=== PATIENT | female | born 1925 | race Caucasian/White ===

== ENCOUNTER 2016-03-11 19:23 | Inpatient (IN) | payer OTHER ==
--- NOTE | 2016-03-11 19:45 | PDOC ---
History of Present Illness - General History Source: Patient Exam Limitations: No Limitations - History of Present Illness Initial Comments: 03/11/16 20:15 The patient is a 89 year old female, from [facility], with a significant past medical history of dementia and hyperglycemia who presents to the ED s/p abnormal labs. The patient has sodium levels of 161. The patient is DNR DNI. The patient denies any pain. This HPI is limited secondary to patients dementia. <Camila Ott - Last Filed: 03/11/16 21:06> - General History Source: Patient <JeremyBerto thakkar - Last Filed: 03/11/16 22:07> - General Chief Complaint: Revisit, Lab Variance Stated Complaint: ABNORMAL LABS Time Seen by Provider: 03/11/16 19:41 Past History <Camila Ott - Last Filed: 03/11/16 21:06> - Past Medical History Dementia: Yes Suicide Attempt (Hx): No - Immunization History Immunization Up to Date: No - Psycho/Social/Smoking Cessation Hx Anxiety: No Suicidal Ideation: No Smoking Status: No Smoking History: Former smoker Have you smoked in the past 12 months: No Number of Cigarettes Smoked Daily: 0 If you are a former smoker, when did you quit?: 50-60years ago Hx Alcohol Use: No Drug/Substance Use Hx: No Substance Use Type: None <Berto Brito - Last Filed: 03/11/16 22:07> - Past Medical History Allergies/Adverse Reactions: Allergies Allergy/AdvReac Type Severity Reaction Status Date / Time No Known Allergies Allergy Verified 03/11/16 19:53 Home Medications: Ambulatory Orders Latanoprost 0.005% Eye Drops [Xalatan 0.005% Eye Drops -] 1 drop OU HS 11/30/12 Sennosides [Senna -] 1 tab PO HS PRN #30 tablet 08/14/15 Lidocaine 5% Patch [Lidoderm -] 1 patch TP DAILY patch 09/26/15 Acetaminophen [Tylenol .Regular Strength -] 650 mg PO Q6H PRN #0 tablet Amlodipine Besylate [Norvasc -] 5 mg PO BID tablet 02/10/16 Docusate Sodium [Colace -] 300 mg PO HS capsule 02/10/16 Enoxaparin [Lovenox -] 30 mg SQ DAILY disp.syrin 02/10/16 Review of Systems - Review of Systems Able to Perform ROS?: Yes Comments:: 03/11/16 20:15 CONSTITUTIONAL: Absent: fever, no chills, no fatigue EYES: Absent: visual changes ENT: Absent: ear pain, no sore throat CARDIOVASCULAR: Absent: chest pain, no palpitations RESPIRATORY: Absent: cough, no SOB GI: Absent: abdominal pain, no nausea, no vomiting, no constipation, no diarrhea HEMATOLOGIC: + abnormal lab findings GENITOURINARY: Absent: dysuria, no frequency, no hematuria MUSKULOSKELETAL: Absent: back pain, no arthralgia, no myalgia SKIN: Absent: rash NEURO: Absent: headache All Other Systems: Reviewed and Negative <Camila Ott - Last Filed: 03/11/16 21:06> *Physical Exam - Vital Signs Last Vital Signs Temp Pulse Resp BP Pulse Ox 97.2 F L 95 H 19 141/56 98 03/11/16 19:47 03/11/16 19:47 03/11/16 19:47 03/11/16 19:47 03/11/16 19:47 - Physical Exam Comments: 03/11/16 20:15 GENERAL: + alert to her name but does not answer appropriately , not complaining of any physical pain. Well-appearing, well-nourished. No apparent distress. HEENT: Normocephalic, atraumatic. PERRL, EOM intact. CARDIOVASCULAR: Normal S1, S2. Regular rate and rhythm. PULMONARY: Clear to auscultation bilaterally. ABDOMEN: Soft, non-distended, non-tender. EXTREMITIES: Normal ROM in all four extremities. No gross deformities. SKIN: Warm, dry. No rash NEUROLOGICAL: + gross motor sensory deficits <Camila Ott - Last Filed: 03/11/16 21:06> Heart Score/ECG Review #1 03/11/16 21:06 Reviewed and interpreted by Dr. Brito Impression: Undetermined rhythm Low voltage QRS Septal infarct, age undetermined Lateral infarct, age undetermined ST & T wave abnormality, consider anterior ischemia Vent rate 96 bpm QRS duration 56 ms QT/QTc 344/434 ms <Camila Ott - Last Filed: 03/11/16 21:06> ED Treatment Course - LABORATORY CBC & Chemistry Diagram: 03/11/16 21:00 03/11/16 21:00 <Berto Brito - Last Filed: 03/11/16 22:07> Medical Decision Making - Medical Decision Making 03/11/16 20:44 Dr. Brito: The scribe's documentation has been prepared under my direction and personally reviewed by me in its entirery. I confirm that the note above accurately reflects all work, treatment, procedures, and medical decision making performed by me. pt will be admitted to [facility] for Hypernatremia. Pt currently hemodynamically stable, in no acute distress. <Berto Brito - Last Filed: 03/11/16 22:07> *DC/Admit/Observation/Transfer - Attestations Scribe Attestion: 03/11/16 20:15 Documentation prepared by Camila Ott, acting as medical technologist prn for Berto Brito MD <Camila Ott - Last Filed: 03/11/16 21:06> - Discharge Dispostion Admit: Yes <Berto Brito - Last Filed: 03/11/16 22:07> Diagnosis at time of Disposition: Hypernatremia - Discharge Dispostion Condition at time of disposition: Fair - Referrals Referrals: Karthik Diaz MD [Primary Care Provider] -
[2016-03-11 19:58] VITALS: BMI 20.5
[2016-03-11 21:12] LABS: BASOPHIL 0.5 % (0-2.0); EOSINOPHIL 1.7 % (0-4.5); MCH 30.7 pg (25.7-33.7); MCHC 31.9 g/dl (32.0-36.0); MEAN CELL VOLUME 96.3 fl (80-96); NEUTROPHILS 69.7 % (42.8-82.8); PLATELET COUNT 207 K/MM3 (134-434); RDW 16.3 % (11.6-15.6); WHITE BLOOD COUNT 9.9 K/mm3 (4.0-10.0)
[2016-03-11 21:22] LABS: INR 1.19 (0.82-1.09); PROTHROMBIN TIME (PATIENT) 13.1 SEC (9.98-11.88)
[2016-03-11 21:46] LABS: ALBUMIN 2.4 g/dl (3.4-5.0); CALCIUM 7.9 mg/dL (8.5-10.1)
[2016-03-11 21:50] LABS: BILIRUBIN,TOTAL 0.5 mg/dL (0.2-1.0); TOT PROT 6.7 g/dl (6.4-8.2); TROPONIN I 0.02 ng/ml (0.00-0.05)
[2016-03-11 21:52] LABS: MAGNESIUM 2.8 mg/dL (1.8-2.4)
[2016-03-11] MEDS ORDERED: ACETAMINOPHEN 325 MG TABLET (FP) PO PRN (22:29)
[2016-03-11] MEDS ORDERED: SENNOSIDES 8.6MG TABLET (FP) PO PRN (22:29)
[2016-03-12 09:45] LABS: ALBUMIN 2.5 g/dl (3.4-5.0); CALCIUM 8.6 mg/dL (8.5-10.1); CREATININE 3.7 mg/dL (0.55-1.02)
[2016-03-12 09:49] LABS: BILIRUBIN,TOTAL 0.8 mg/dL (0.2-1.0); TOT PROT 6.6 g/dl (6.4-8.2); TROPONIN I 0.02 ng/ml (0.00-0.05)
[2016-03-12 09:56] LABS: BASOPHIL 0.4 % (0-2.0); EOSINOPHIL 1.1 % (0-4.5); MCH 31.3 pg (25.7-33.7); MCHC 32.3 g/dl (32.0-36.0); MEAN CELL VOLUME 96.9 fl (80-96); MEAN PLT VOLUME 8.9 fl (7.5-11.1); NEUTROPHILS 68.8 % (42.8-82.8); PLATELET COUNT 193 K/MM3 (134-434); RDW 15.9 % (11.6-15.6); WHITE BLOOD COUNT 10.5 K/mm3 (4.0-10.0)
[2016-03-12] MEDS ORDERED: ENOXAPARIN NA (PORCINE) 30 MG/0.3 ML DISP.SYRIN SQ SCH (10:00)
[2016-03-12] MEDS ORDERED: SODIUM CHLORIDE 0.45% 1,000 ML IV SCH (10:00)
[2016-03-12] MEDS ORDERED: HEPARIN NA (PORCINE) 5,000 UNITS/ML 1ML VIAL SQ SCH (10:00)
[2016-03-12] MEDS ORDERED: HALOPERIDOL LACTATE 5 MG/ML IM PRN (10:05)
--- NOTE | 2016-03-12 10:05 | HP ---
Admitting History and Physical - Primary Care Physician PCP: Ernestina Vidal - Admission Chief Complaint: [facility]ENT [facility] WITH HYPERNATREMIA History of Present Illness: The patient is a 89 year old female, from [facility], with a significant past medical history of dementia and hyperglycemia who presents to the ED s/p abnormal labs. The patient has sodium levels of 161 and today at 172. The patient is DNR DNI. The patient denies any pain. This HPI is limited secondary to patients dementia. 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: Dementia (mild), Vertigo Gastrointestinal: Yes: Constipation ...: No Musculoskeletal: Yes: Chronic low back pain Endocrine: Yes: Other (diet controlled hyperglycemia) - Advance Directives Advance Directives: Yes: DNR - Smoking History Smoking history: Former smoker Have you smoked in the past 12 months: No Aproximately how many cigarettes per day: 0 If you are a former smoker, when did you quit?: 50-60years ago - Alcohol/Substance Use Hx Alcohol Use: No History of Substance Use: reports: None - Social History ADL: Independent History of Recent Travel: No Home Medications - Allergies Allergies/Adverse Reactions: Allergies Allergy/AdvReac Type Severity Reaction Status Date / Time No Known Allergies Allergy Verified 03/11/16 19:53 - Home Medications Home Medications: Ambulatory Orders Latanoprost 0.005% Eye Drops [Xalatan 0.005% Eye Drops -] 1 drop OU HS 11/30/12 Sennosides [Senna -] 1 tab PO HS PRN #30 tablet 08/14/15 Lidocaine 5% Patch [Lidoderm -] 1 patch TP DAILY patch 09/26/15 Acetaminophen [Tylenol .Regular Strength -] 650 mg PO Q6H PRN #0 tablet Amlodipine Besylate [Norvasc -] 5 mg PO BID tablet 02/10/16 Docusate Sodium [Colace -] 300 mg PO HS capsule 02/10/16 Enoxaparin [Lovenox -] 30 mg SQ DAILY disp.syrin 02/10/16 Family Disease History - Family Disease History Family Disease History: Respiratory: Father (asthma, glaucoma), Other: Father Review of Systems - Review of Systems Constitutional: reports: Weakness Eyes: reports: No Symptoms HENT: reports: No Symptoms Neck: reports: No Symptoms Cardiovascular: reports: No Symptoms Respiratory: reports: No Symptoms Gastrointestinal: reports: No Symptoms Genitourinary: reports: Incontinence Musculoskeletal: reports: Muscle Weakness Integumentary: reports: No Symptoms Neurological: reports: Pre-Existing Deficit, Weakness Endocrine: reports: Other Hematology/Lymphatic: reports: Other Psychiatric: reports: Other Physical Examination Vital Signs: Vital Signs Temperature 97.7 F 03/12/16 01:30 Pulse Rate 95 H 03/12/16 01:30 Respiratory Rate 18 03/12/16 01:30 Blood Pressure 120/71 03/12/16 01:30 O2 Sat by Pulse Oximetry (%) 90 L 03/12/16 01:30 Constitutional: Yes: Mild Distress Eyes: Yes: WNL HENT: Yes: WNL Cardiovascular: Yes: Pulse Irregular Respiratory: Yes: WNL Gastrointestinal: Yes: WNL Musculoskeletal: Yes: Muscle Weakness Edema: No Peripheral Pulses WNL: Yes Integumentary: Yes: WNL Wound/Incision: Yes: Clean/Dry Neurological: Yes: Confusion, Pre-Existing Deficit, Unsteady Gait ...Motor Strength: LLE, RLE (history of fractures ankles) Psychiatric: Yes: Agitated, Other Labs: CBC, BMP 03/12/16 07:00 03/12/16 07:00 Problem List - Problems (1) FTT (failure to thrive) in adult Code(s): R62.7 - ADULT FAILURE TO THRIVE (2) Hypernatremia Code(s): E87.0 - HYPEROSMOLALITY AND HYPERNATREMIA (3) Dementia Code(s): F03.90 - UNSPECIFIED DEMENTIA WITHOUT BEHAVIORAL DISTURBANCE Qualifiers: Dementia type: associated with other underlying disease (4) Fibula fracture Code(s): S82.409A - UNSP FRACTURE OF SHAFT OF UNSP FIBULA, INIT FOR CLOS FX Qualifiers: Fibula location: distal physis (incl. Salter-Fish) Salter-Fish Fracture Type: unspecified configuration Fracture healing: with delayed healing (5) Urinary tract infection Code(s): N39.0 - URINARY TRACT INFECTION, SITE NOT SPECIFIED Qualifiers: Urinary tract infection type: acute cystitis Hematuria presence: without hematuria Qualified Code(s): N30.00 - Acute cystitis without hematuria Assessment/Plan HYPERNATREMIA WILL GIVE 1/2 NS AT 80CC HR REPEAT NA+ LEVEL 6PM TODAY NEPHROLOGY EVAL LOVENOX STOPPED BECAUSE OF CREATININE LEVEL > 1.8 INCREASES RISK OF BLEEDS REEVALUATE TOMORROW, CAN USE HEPARIN IV FIBULA FRACTURES OLD, PT EVAL FALL PRECAUTIONS USE HALDOL PRN
--- NOTE | 2016-03-12 11:27 | CONSULT ---
Consult - text type - Consultation Consultation Note: Renal Consult for MARLEN and Hypernatremia This is a 89 year odl woman with PMhx of Dementia and Hypertension who presented with hypernatremia and renal failure as noted on outpatient labs. Pt is a awake and alert but not able to provide history. Unclear baseline mental status. She denies any pain, sob when asked. Not currently on IVF. No diarrhea reported in history. No fevers as inpatient. PMhx: as above Allergies: NKDA Family hx: Unknown ROS: Unable to obtain Home meds: Medication Instructions Recorded Latanoprost 0.005% Eye Drops 1 drop OU HS 11/30/12 [Xalatan 0.005% Eye Drops -] Sennosides [Senna -] 1 tab PO HS PRN #30 tablet 08/14/15 Lidocaine 5% Patch [Lidoderm -] 1 patch TP DAILY patch 09/26/15 Acetaminophen [Tylenol .Regular 650 mg PO Q6H PRN #0 tablet 02/10/16 Strength -] Amlodipine Besylate [Norvasc -] 5 mg PO BID tablet 02/10/16 Docusate Sodium [Colace -] 300 mg PO HS capsule 02/10/16 Enoxaparin [Lovenox -] 30 mg SQ DAILY disp.syrin 02/10/16 Vital Signs Temperature 97.7 F 03/12/16 01:30 Pulse Rate 95 H 03/12/16 01:30 Respiratory Rate 18 03/12/16 01:30 Blood Pressure 120/71 03/12/16 01:30 O2 Sat by Pulse Oximetry (%) 90 L 03/12/16 01:30 Intake & Output 03/09/16 03/10/16 03/11/16 03/12/16 23:59 23:59 23:59 23:59 Intake Total 0 0 Balance 0 0 Weight 120 lb Gen: Awake, NAD HEENT: NC/AT, Dry MM, No JVD CVS: RRR, No M/r Lungs: CTA Abd: Soft NT/ND Ext: No edema, clubbing or cyanosis : No bladder distension, in diaper Neuro: Awake but not answering questions CBC, BMP 03/12/16 07:00 03/12/16 07:00 Current Medications Acetaminophen (Tylenol -) 650 mg PO Q6H PRN PRN Reason: FEVER OR PAIN Amlodipine Besylate (Norvasc -) 5 mg PO BID SHIELA Docusate Sodium (Colace -) 300 mg PO HS SHIELA Haloperidol (Haldol Injection (Fast Acting) -) 2 mg IM Q4H PRN PRN Reason: AGITATION Sodium Chloride (1/2 Normal Saline) 1,000 mls @ 100 mls/hr IV ASDIR SHIELA Latanoprost (Xalatan 0.005% Eye Drops -) 1 drop OU HS SHIELA Lidocaine (Lidoderm Patch -) 1 patch TP DAILY SHIELA Senna (Senna -) 1 tab PO HS PRN PRN Reason: CONSTIPATION A/P 89 year odl woman with PMhx of Dementia and Hypertension who presented with hypernatremia and renal failure as noted on outpatient labs. Pt is a awake and alert but not able to provide history. #Acute Renal Failure with hypernatremia MARLEN likely secondary to intravascular volume depletion Water Deficit is 6.2 L Check UA, FeNa with straight cath IVF: NS at 100cc per hour Repeat BMP this evening Goal rate of Na correction 8-10 daily no acute indication for GANG SAWYER encourage po water intake as tolerated #AMS/Dementia ? Baseline Monitor for improvement with Na improvement #Hypertension Can continue Amlodipine for now Goal BP < 140/90 #Anemia Check iron profile no indication for transfusion Thank you Will follow Claudio Hernandez DO
[2016-03-12] MEDS: amLODIPine BESYLATE 5 MG TABLET (FP) PO SCH ×2 (12:06→21:46)
[2016-03-12] MEDS: LIDOCAINE 5% TOPICAL PATCH TP SCH (12:07)
[2016-03-12] MEDS: SODIUM CHLORIDE 0.45% 1,000 ML IV SCH (12:56)
[2016-03-12 14:36] LABS: URINE CREATININE 48.4 mg/dL
--- NOTE | 2016-03-12 14:44 | CONSULT ---
Consult Consult Specialty:: Cardiology Referred by:: Dr Vidal Reason for Consultation:: Elevated BNP - History of Present Illness Chief Complaint: Abnormal labs History of Present Illness: 89 yo female, demented, with hx of HTN, falls -. in 08/28 and again in 01/28 -> left non-displaced fibula fracture, here from [facility] with abnormal labs, specifically renal failure and elevated Na to 162. No report of cardiac complaints We were asked to see pt because of BNP > 1000. 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), Vertigo Cardio/Vascular: Yes: HTN Gastrointestinal: Yes: Constipation ...: No Musculoskeletal: Yes: Chronic low back pain Endocrine: Yes: Other (diet controlled hyperglycemia) Additional Medical History: Glaucoma - Alcohol/Substance Use Hx Alcohol Use: No History of Substance Use: reports: None - Smoking History Smoking history: Former smoker Have you smoked in the past 12 months: No Aproximately how many cigarettes per day: 0 If you are a former smoker, when did you quit?: 50-60years ago - Social History Usual Living Arrangement: [facility] ADL: Support Services History of Recent Travel: No Home Medications - Allergies Allergies/Adverse Reactions: Allergies Allergy/AdvReac Type Severity Reaction Status Date / Time No Known Allergies Allergy Verified 03/11/16 19:53 - Home Medications Home Medications: Ambulatory Orders Latanoprost 0.005% Eye Drops [Xalatan 0.005% Eye Drops -] 1 drop OU HS 11/30/12 Sennosides [Senna -] 1 tab PO HS PRN #30 tablet 08/14/15 Lidocaine 5% Patch [Lidoderm -] 1 patch TP DAILY patch 09/26/15 Acetaminophen [Tylenol .Regular Strength -] 650 mg PO Q6H PRN #0 tablet Amlodipine Besylate [Norvasc -] 5 mg PO BID tablet 02/10/16 Docusate Sodium [Colace -] 300 mg PO HS capsule 02/10/16 Enoxaparin [Lovenox -] 30 mg SQ DAILY disp.syrin 02/10/16 Family Disease History - Family Disease History Family History: Unable to Obtain Family Disease History: Respiratory: Father (asthma, glaucoma), Other: Father Review of Systems Unable to obtain ROS, reason: dementia Physical Exam Vital Signs: Vital Signs Temperature 98.2 F 03/12/16 11:00 Pulse Rate 100 H 03/12/16 11:00 Respiratory Rate 18 03/12/16 11:00 Blood Pressure 116/71 03/12/16 11:00 O2 Sat by Pulse Oximetry (%) 90 L 03/12/16 01:30 Constitutional: Yes: No Distress, Thin Eyes: Yes: Conjunctiva Clear HENT: Yes: Atraumatic Neck: Yes: Supple Cardiovascular: Yes: Regular Rate and Rhythm. No: Murmur Respiratory: Yes: CTA Bilaterally Gastrointestinal: Yes: Normal Bowel Sounds, Soft. No: Tenderness Extremities: Yes: Other (warm, left lower leg/ankle dresssed) Edema: No Peripheral Pulses WNL: Yes Neurological: Yes: Other (awake and non-communicating for the most part) Labs: CBC, BMP 03/12/16 07:00 03/12/16 07:00 Imaging - Results Chest X-ray: Report Reviewed, Image Reviewed EKG: Image Reviewed (Poor baseline. Likely SR with low voltage, NSST-T changes ) Assessment/Plan 89 yo demented female with the above history, here with hypernatremia (Na 162) and renal failure with initial BUN/Cr 88/4. In that setting, pt has a BNP > 1000. However, no clinical evidence of CHF. In fact, pt appears dehydrated No ACS -. Muriel neg X 2 BP ok Rec: No direct cardiac intervention warranted at this time Correction of hypernatremia per nephrology Echocardiogram to help in fluid management (if pt allows. One was ordered back in 08/28 but pt then refused it) Thanks! We'll se prn!
[2016-03-12 14:45] LABS: URINE APPEARANCE SLCLOUDY; URINE BILIRUBIN NEGATIVE (NEGATIVE); URINE COLOR YELLOW; URINE GLUCOSE (UA) NEGATIVE (NEGATIVE); URINE KETONE NEGATIVE (NEGATIVE); URINE LEUK ESTERASE NEGATIVE (NEGATIVE); URINE NITRITE NEGATIVE (NEGATIVE); URINE UROBILINOGEN NEGATIVE E.U./dl (0.2-1.0)
[2016-03-12 15:10] LABS: URINE BLOOD 3+ (NEGATIVE); URINE PROTEIN 2+ (NEGATIVE)
[2016-03-12 15:13] LABS: GRANULAR CASTS 7 /lpf; URINE BACTERIA MANY /hpf (NONE SEEN); URINE RBC 80 /hpf (0-3); URINE WBC 9 /hpf (3-5)
--- NOTE | 2016-03-12 15:43 | EKG ---
Test Reason : Blood Pressure : / mmHG Vent. Rate : 096 BPM Atrial Rate : 100 BPM P-R Int : 000 ms QRS Dur : 056 ms QT Int : 344 ms P-R-T Axes : -44 140 039 degrees QTc Int : 434 ms POOR DATA QUALITY, INTERPRETATION MAY BE ADVERSELY AFFECTED UNDETERMINED RHYTHM LOW VOLTAGE QRS SEPTAL INFARCT , AGE UNDETERMINED LATERAL INFARCT , AGE UNDETERMINED ST ABNORMAL ECG Confirmed by RODRIGUEZ GABRIEL, ZANDER ([id number]) on 03/12/2016 3:42:55 PM Referred By: Overread By: ZANDER FRIAS MD
[2016-03-12 19:35] LABS: CALCIUM 7.9 mg/dL (8.5-10.1); CREATININE 3.5 mg/dL (0.55-1.02)
[2016-03-12] MEDS ORDERED: PT OWN MED DRAWER 7, Y5N ONE ×3 (20:33→23:48)
[2016-03-12] MEDS: DOCUSATE SODIUM 100 MG CAPSULE (FP) PO SCH (21:45)
[2016-03-12] MEDS: LATANOPROST 0.005% OPHTH SOLN 2.5ML BOTTLE OU SCH (23:22)
[2016-03-13] MEDS: SODIUM CHLORIDE 0.45% 1,000 ML IV SCH ×3 (02:02→23:04)
[2016-03-13 07:20] LABS: BASOPHIL 0.5 % (0-2.0); MCH 31.5 pg (25.7-33.7); MCHC 32.6 g/dl (32.0-36.0); MEAN CELL VOLUME 96.7 fl (80-96); MEAN PLT VOLUME 8.7 fl (7.5-11.1); NEUTROPHILS 64.3 % (42.8-82.8); PLATELET COUNT 180 K/MM3 (134-434); WHITE BLOOD COUNT 9.5 K/mm3 (4.0-10.0)
[2016-03-13 07:58] LABS: ALBUMIN 2.4 g/dl (3.4-5.0); BILIRUBIN,TOTAL 0.8 mg/dL (0.2-1.0); CALCIUM 7.9 mg/dL (8.5-10.1); CREATININE 3.1 mg/dL (0.55-1.02); MAGNESIUM 2.5 mg/dL (1.8-2.4); TOT PROT 6.3 g/dl (6.4-8.2)
[2016-03-13] MEDS: amLODIPine BESYLATE 5 MG TABLET (FP) PO SCH ×2 (10:47→22:48)
[2016-03-13] MEDS: LIDOCAINE 5% TOPICAL PATCH TP SCH (10:48)
--- NOTE | 2016-03-13 11:21 | PN ---
Progress Note, Physician Chief Complaint: ASLEEP, DEMENTIA MILD DISTRESS - Current Medication List Current Medications: Active Medications Acetaminophen (Tylenol -) 650 mg PO Q6H PRN PRN Reason: FEVER OR PAIN Amlodipine Besylate (Norvasc -) 5 mg PO BID [facility] Last Admin: 03/13/16 10:47 Dose: 5 mg Docusate Sodium (Colace -) 300 mg PO HS [facility] Last Admin: 03/12/16 21:45 Dose: 300 mg Haloperidol (Haldol Injection (Fast Acting) -) 2 mg IM Q4H PRN PRN Reason: AGITATION Sodium Chloride (1/2 Normal Saline) 1,000 mls @ 100 mls/hr IV ASDIR [facility] Last Admin: 03/13/16 02:02 Dose: 100 mls/hr Latanoprost (Xalatan 0.005% Eye Drops -) 1 drop OU HS [facility] Last Admin: 03/12/16 23:22 Dose: 1 drop Lidocaine (Lidoderm Patch -) 1 patch TP DAILY [facility] Last Admin: 03/13/16 10:48 Dose: 1 patch Senna (Senna -) 1 tab PO HS PRN PRN Reason: CONSTIPATION - Objective Vital Signs: Vital Signs Temperature 98.2 F 03/13/16 06:00 Pulse Rate 103 H 03/13/16 06:00 Respiratory Rate 18 03/13/16 06:00 Blood Pressure 134/56 03/13/16 06:00 O2 Sat by Pulse Oximetry (%) 92 L 03/12/16 21:00 Constitutional: Yes: Mild Distress Eyes: Yes: WNL HENT: Yes: WNL Neck: Yes: WNL Cardiovascular: Yes: Pulse Irregular Respiratory: Yes: WNL Gastrointestinal: Yes: WNL Genitourinary: Yes: Incontinence Musculoskeletal: Yes: Back Pain, Muscle Pain, Muscle Weakness Extremities: Yes: Other Edema: Yes Edema: LLE: Trace, RLE: Trace Peripheral Pulses WNL: Yes Integumentary: Yes: WNL Wound/Incision: Yes: Other Neurological: Yes: Confusion, Pre-Existing Deficit ...Motor Strength: LUE, LLE, RUE, RLE Psychiatric: Yes: Agitated Labs: CBC, BMP 03/13/16 05:35 03/13/16 05:35 INR, PTT INR 1.19 (0.82-1.09) H 03/11/16 21:00 Problem List - Problems (1) FTT (failure to thrive) in adult Code(s): R62.7 - ADULT FAILURE TO THRIVE (2) Hypernatremia Code(s): E87.0 - HYPEROSMOLALITY AND HYPERNATREMIA (3) Dementia Code(s): F03.90 - UNSPECIFIED DEMENTIA WITHOUT BEHAVIORAL DISTURBANCE Qualifiers: Dementia type: associated with other underlying disease (4) Fibula fracture Code(s): S82.409A - UNSP FRACTURE OF SHAFT OF UNSP FIBULA, INIT FOR CLOS FX Qualifiers: Fibula location: distal physis (incl. Salter-Fish) Salter-Fish Fracture Type: unspecified configuration Fracture healing: with delayed healing (5) Urinary tract infection Code(s): N39.0 - URINARY TRACT INFECTION, SITE NOT SPECIFIED Qualifiers: Urinary tract infection type: acute cystitis Hematuria presence: without hematuria Qualified Code(s): N30.00 - Acute cystitis without hematuria Assessment/Plan HYPERNATREMIA WILL GIVE 1/2 NS AT 80CC HR REPEAT NA+ LEVEL 6PM TODAY NEPHROLOGY EVAL LOVENOX STOPPED BECAUSE OF CREATININE LEVEL > 1.8 INCREASES RISK OF BLEEDS REEVALUATE TOMORROW, CAN USE HEPARIN IV FIBULA FRACTURES OLD, PT EVAL FALL PRECAUTIONS USE HALDOL PRN HOSPICE REFERRAL
--- NOTE | 2016-03-13 14:06 | PN ---
Progress Note (short form) - Note Progress Note: Pt was followed by Dr. Lewis as an outpatient. He is aware of the patient and will be following. Claudio Hernandez DO
--- NOTE | 2016-03-13 15:14 | PN ---
Progress Note, Physician History of Present Illness: Pt seen and examined at bedside. She was seen by me in the [place]. After reviewing her labs I recommended she be sent in to the hospital for acute renal failure and hypernatremia. - Current Medication List Current Medications: Active Medications Acetaminophen (Tylenol -) 650 mg PO Q6H PRN PRN Reason: FEVER OR PAIN Amlodipine Besylate (Norvasc -) 5 mg PO BID [facility] Last Admin: 03/13/16 10:47 Dose: 5 mg Docusate Sodium (Colace -) 300 mg PO HS [facility] Last Admin: 03/12/16 21:45 Dose: 300 mg Haloperidol (Haldol Injection (Fast Acting) -) 2 mg IM Q4H PRN PRN Reason: AGITATION Sodium Chloride (1/2 Normal Saline) 1,000 mls @ 100 mls/hr IV ASDIR [facility] Last Admin: 03/13/16 11:43 Dose: 100 mls/hr Latanoprost (Xalatan 0.005% Eye Drops -) 1 drop OU HS [facility] Last Admin: 03/12/16 23:22 Dose: 1 drop Lidocaine (Lidoderm Patch -) 1 patch TP DAILY [facility] Last Admin: 03/13/16 10:48 Dose: 1 patch Senna (Senna -) 1 tab PO HS PRN PRN Reason: CONSTIPATION - Objective Vital Signs: Vital Signs Temperature 98.2 F 03/13/16 06:00 Pulse Rate 103 H 03/13/16 06:00 Respiratory Rate 18 03/13/16 06:00 Blood Pressure 134/56 03/13/16 06:00 O2 Sat by Pulse Oximetry (%) 92 L 03/12/16 21:00 Constitutional: Yes: Calm Eyes: Yes: Conjunctiva Clear HENT: Yes: Atraumatic Cardiovascular: Yes: S1, S2 Respiratory: Yes: CTA Bilaterally Gastrointestinal: Yes: Soft Genitourinary: Yes: Incontinence Musculoskeletal: Yes: Muscle Weakness Edema: No Neurological: Yes: Pre-Existing Deficit Labs: CBC, BMP 03/13/16 05:35 03/13/16 05:35 INR, PTT INR 1.19 (0.82-1.09) H 03/11/16 21:00 - ....Imaging Chest X-ray: Report Reviewed Assessment/Plan Current Medications Generic Name Dose Route Start Last Admin Trade Name Freq PRN Reason Stop Dose Admin Acetaminophen 650 mg 03/11/16 22:29 Tylenol - PO Q6H PRN FEVER OR PAIN Amlodipine Besylate 5 mg 03/12/16 10:00 03/13/16 10:47 Norvasc - PO 5 mg BID SHIELA Administration Docusate Sodium 300 mg 03/12/16 22:00 03/12/16 21:45 Colace - PO 300 mg HS SHIELA Administration Haloperidol 2 mg 03/12/16 10:05 Haldol Injection (Fast Acting) - IM Q4H PRN AGITATION Sodium Chloride 1,000 mls @ 100 mls/hr 03/12/16 11:24 03/13/16 11:43 1/2 Normal Saline IV 100 mls/hr ASDIR SHIELA Administration Latanoprost 1 drop 03/12/16 22:00 03/12/16 23:22 Xalatan 0.005% Eye Drops - OU 1 drop HS SHIELA Administration Lidocaine 1 patch 03/12/16 10:00 03/13/16 10:48 Lidoderm Patch - TP 1 patch DAILY SHIELA Administration Senna 1 tab 03/11/16 22:29 Senna - PO HS PRN CONSTIPATION 03/02/16 na 152 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 Hypernatremia 2. MARLEN 3. dementia 4. HTN 5. dehydration 6. anemia Plan - pt now has a free water deficit of about 5.25 liters - renal function is improving - check ua - cont with hypotonic fluid - encourage PO water intake - repeat labs in am - will fallow Dr Townsend
[2016-03-13] MEDS: DOCUSATE SODIUM 100 MG CAPSULE (FP) PO SCH (22:47)
[2016-03-13] MEDS: LATANOPROST 0.005% OPHTH SOLN 2.5ML BOTTLE OU SCH (22:47)
--- NOTE | 2016-03-14 04:05 | HOSP ---
Addendum entered and electronically signed by Hayde Ma RES 03/14/16 06: 33: head ct no acute pathology Original Note: Subjective - Review of Symptoms Events since last encounter: called because patient has fallen out of hospital bed (unwitnessed) Subjective: Patient, who is admitted for hypernatremia and confused prior to fall, was found on the floor on her back by the nurses. she was able to move all extremities but not able to communicate or follow commands as per her initial pre fall mental status. She does nt have any visible lesions of contusions. She is arousable to tactile stimulation Neurological: Yes: Confusion Other Systems: unable to obtain ROS as patient is not communicable (pre fall mental status) Physical Examination Vital Signs: Vital Signs Temperature 97.8 F 03/13/16 19:12 Pulse Rate 91 H 03/13/16 19:12 Respiratory Rate 18 03/13/16 22:00 Blood Pressure 120/50 03/13/16 22:00 O2 Sat by Pulse Oximetry (%) 93 L 03/13/16 21:00 Findings/Remarks: patient has not visible contusions or lesions. passive movement of all extremities does not illicit any verbal response. palpation of back of her hear ilicits some mild moaning but that may be because patient woke up at that moment. No hematoma appreciated. Constitutional: Yes: Calm, Thin, Other (not responsiove to copmmand but arousable. (baseline)) Eyes: Yes: Conjunctiva Clear, PERRL HENT: Yes: Atraumatic, Normocephalic Neck: Yes: Supple Cardiovascular: Yes: Regular Rate and Rhythm Respiratory: Yes: CTA Bilaterally Gastrointestinal: Yes: Normal Bowel Sounds, Soft, Other (no mass) Extremities: Yes: Other (hips passively posistioned without internal or external rotation, passibe movement of all extremities without iliciting verbal response.) Peripheral Pulses: Left Radial: 2+, Right Radial: 2+, Left Femoral: 2+, Right Femoral: 2+ Integumentary: Yes: Bruising Neurological: Yes: Confusion, Other (face grossly symmetrical, not following command) Labs: CBC, BMP 03/13/16 05:35 03/13/16 05:35 Hospitalist Encounter Assessment: s/p fall out of bed -no illicited pain on palpation of back, neck or rotation of extremities. possible illicited pain on palpation of back of head. -not on a/c -unable to do full neuro exam due to baselines severe confusion, lethargy, not following commands (as per nurses report) -will ct head w/o contrast to r/o acute bleed -f/u am cbc to r/o drop in crit. Visit type - Emergency Visit Emergency Visit: No - New Patient This patient is new to me today: Yes Date on this admission: 03/14/16 - Critical Care Critical Care patient: No
[2016-03-14 06:06] LABS: SERUM IRON 55 ug/dL (27-139); TOTAL IRON BINDING CAPACITY 125 ug/dL (250-450); UIBC 70 ug/dL (118-369)
[2016-03-14 07:29] LABS: MCH 31.4 pg (25.7-33.7); MCHC 32.8 g/dl (32.0-36.0); MEAN CELL VOLUME 95.8 fl (80-96); MEAN PLT VOLUME 8.7 fl (7.5-11.1); PLATELET COUNT 174 K/MM3 (134-434); RDW 15.8 % (11.6-15.6); WHITE BLOOD COUNT 12.1 K/mm3 (4.0-10.0)
[2016-03-14 07:38] LABS: CALCIUM 7.8 mg/dL (8.5-10.1); CREATININE 2.7 mg/dL (0.55-1.02)
[2016-03-14] MEDS: LIDOCAINE 5% TOPICAL PATCH TP SCH (11:44)
[2016-03-14] MEDS: amLODIPine BESYLATE 5 MG TABLET (FP) PO SCH ×2 (11:45→22:57)
[2016-03-14] MEDS: SODIUM CHLORIDE 0.45% 1,000 ML IV SCH ×2 (11:45→13:26)
--- NOTE | 2016-03-14 13:30 | PN ---
Progress Note (short form) - Note Progress Note: RENAL Pt is being fed by nursing staff she appears comfortable has some evidence of trauma on her legs Last Vital Signs Temp Pulse Resp BP Pulse Ox 97.2 F L 97 H 20 129/66 93 L 03/14/16 09:40 03/14/16 09:40 03/14/16 09:40 03/14/16 09:40 03/13/16 21:00 lungs clear cvs s1s2 rr abd soft ext -edema Current Medications Generic Name Dose Route Start Last Admin Trade Name Freq PRN Reason Stop Dose Admin Acetaminophen 650 mg 03/11/16 22:29 Tylenol - PO Q6H PRN FEVER OR PAIN Amlodipine Besylate 5 mg 03/12/16 10:00 03/14/16 11:45 Norvasc - PO 5 mg BID SHIELA Administration Docusate Sodium 300 mg 03/12/16 22:00 03/13/16 22:47 Colace - PO 300 mg HS SHIELA Administration Haloperidol 2 mg 03/12/16 10:05 Haldol Injection (Fast Acting) - IM Q4H PRN AGITATION Sodium Chloride 1,000 mls @ 100 mls/hr 03/12/16 11:24 03/14/16 13:26 1/2 Normal Saline IV 100 mls/hr ASDIR SHIELA Administration Latanoprost 1 drop 03/12/16 22:00 03/13/16 22:47 Xalatan 0.005% Eye Drops - OU 1 drop HS SHIELA Administration Lidocaine 1 patch 03/12/16 10:00 03/14/16 11:44 Lidoderm Patch - TP 1 patch DAILY SHIELA Administration Senna 1 tab 03/11/16 22:29 Senna - PO HS PRN CONSTIPATION CBC, BMP 03/14/16 05:50 03/14/16 05:50 Impression 1. Hypernatremia 2. MARLEN 3. dementia 4. HTN 5. dehydration 6. anemia Plan - renal function is improving - check ua - cont with hypotonic fluid - encourage PO water intake - repeat labs in am MV
--- NOTE | 2016-03-14 13:45 | CONSULT ---
Psychiatry Consult Chief Complaint: agitation due to Dementia Symptoms: reports: Memory Impairment, Impulsivity - Previous Psychiatric Treatment Outpatient: None Inpatient: None - Previous Substance Abuse Treatment Outpatient: None Inpatient: None - Current Medications Current Medications: Active Medications Acetaminophen (Tylenol -) 650 mg PO Q6H PRN PRN Reason: FEVER OR PAIN Amlodipine Besylate (Norvasc -) 5 mg PO BID [facility] Last Admin: 03/14/16 11:45 Dose: 5 mg Divalproex Sodium (Depakote Sprinkle Caps -) 125 mg PO BID SHIELA Docusate Sodium (Colace -) 300 mg PO HS [facility] Last Admin: 03/13/16 22:47 Dose: 300 mg Haloperidol (Haldol Injection (Fast Acting) -) 2 mg IM Q4H PRN PRN Reason: AGITATION Sodium Chloride (1/2 Normal Saline) 1,000 mls @ 100 mls/hr IV ASDIR [facility] Last Admin: 03/14/16 13:26 Dose: 100 mls/hr Latanoprost (Xalatan 0.005% Eye Drops -) 1 drop OU HS [facility] Last Admin: 03/13/16 22:47 Dose: 1 drop Lidocaine (Lidoderm Patch -) 1 patch TP DAILY [facility] Last Admin: 03/14/16 11:44 Dose: 1 patch Senna (Senna -) 1 tab PO HS PRN PRN Reason: CONSTIPATION - Allergies Allergies: Allergies Allergy/AdvReac Type Severity Reaction Status Date / Time No Known Allergies Allergy Verified 03/11/16 19:53 - Current Living Status Usual Living Arrangement: Senior Living - Current Mental Status Evaluation Appearance: Disheveled Attitude: Guarded - Affect Affect: Constrictive Appropriateness: Not Appropriate - Mood Mood: Irritable - Speech/Language Expressive: Delayed - Psychomotor Activity Psychomotor Activity: Slowed - Thought Process Thought Process: Circumstantial - Thought Content Hallucinations: Absent Delusions: Absent - Self Perception Self Perception: Depersonalization - Cognition Attention: Diminished Orientation: Time, Person, Place Memory, Immediate Recall: Impaired Memory, Short Term: 0/3 Memory, Remote: Impaired Memory, Remote with Promptin/3 - Concentration Serial Sevens Intact: No Simple Calculations Intact: No - Abstraction Proverb Interpretation: Impaired Judgement: Moderately Impaired - Insight Insight: Impaired - Impulse Control Impulse Control: Moderately Impaired - Suicidal Ideation Suicidal Ideation: No - Homicidal Ideation Homicidal Ideation: No Assessment/Plan Start DEpakote 125mg po bid for agiation.
--- NOTE | 2016-03-14 13:50 | PN ---
Progress Note, Physician - Current Medication List Current Medications: Active Medications Acetaminophen (Tylenol -) 650 mg PO Q6H PRN PRN Reason: FEVER OR PAIN Amlodipine Besylate (Norvasc -) 5 mg PO BID [facility] Last Admin: 03/14/16 11:45 Dose: 5 mg Divalproex Sodium (Depakote Sprinkle Caps -) 125 mg PO BID SHIELA Docusate Sodium (Colace -) 300 mg PO HS [facility] Last Admin: 03/13/16 22:47 Dose: 300 mg Haloperidol (Haldol Injection (Fast Acting) -) 2 mg IM Q4H PRN PRN Reason: AGITATION Sodium Chloride (1/2 Normal Saline) 1,000 mls @ 100 mls/hr IV ASDIR [facility] Last Admin: 03/14/16 13:26 Dose: 100 mls/hr Latanoprost (Xalatan 0.005% Eye Drops -) 1 drop OU HS [facility] Last Admin: 03/13/16 22:47 Dose: 1 drop Lidocaine (Lidoderm Patch -) 1 patch TP DAILY [facility] Last Admin: 03/14/16 11:44 Dose: 1 patch Senna (Senna -) 1 tab PO HS PRN PRN Reason: CONSTIPATION - Objective Vital Signs: Vital Signs Temperature 96.7 F L 03/14/16 13:33 Pulse Rate 102 H 03/14/16 13:33 Respiratory Rate 20 03/14/16 13:33 Blood Pressure 121/63 03/14/16 13:33 O2 Sat by Pulse Oximetry (%) 93 L 03/13/16 21:00 Cardiovascular: Yes: Regular Rate and Rhythm Respiratory: Yes: Regular, CTA Bilaterally Gastrointestinal: Yes: Normal Bowel Sounds, Soft Labs: CBC, BMP 03/14/16 05:50 03/14/16 05:50 INR, PTT INR 1.19 (0.82-1.09) H 03/11/16 21:00 Problem List - Problems (1) Hypernatremia Assessment/Plan: HYPOTONIC SOLUTION MONITOR LABS Code(s): E87.0 - HYPEROSMOLALITY AND HYPERNATREMIA (2) MARLEN (acute kidney injury) Assessment/Plan: ASA ABOVE CR IMPROVING Code(s): N17.9 - ACUTE KIDNEY FAILURE, UNSPECIFIED (3) Leukocytosis Assessment/Plan: UA CXR Code(s): D72.829 - ELEVATED WHITE BLOOD CELL COUNT, UNSPECIFIED (4) Fibula fracture Code(s): S82.409A - UNSP FRACTURE OF SHAFT OF UNSP FIBULA, INIT FOR CLOS FX Qualifiers: Fibula location: distal physis (incl. Salter-Fish) Salter-Fish Fracture Type: unspecified configuration Fracture healing: with delayed healing (5) Agitation Assessment/Plan: PSYCH CONSULT Code(s): R45.1 - RESTLESSNESS AND AGITATION (6) Dementia Code(s): F03.90 - UNSPECIFIED DEMENTIA WITHOUT BEHAVIORAL DISTURBANCE Qualifiers: Dementia type: associated with other underlying disease
[2016-03-14 18:32] LABS: URINE APPEARANCE CLOUDY; URINE BILIRUBIN NEGATIVE (NEGATIVE); URINE COLOR YELLOW; URINE GLUCOSE (UA) NEGATIVE (NEGATIVE); URINE KETONE NEGATIVE (NEGATIVE); URINE LEUK ESTERASE NEGATIVE (NEGATIVE); URINE NITRITE NEGATIVE (NEGATIVE); URINE UROBILINOGEN NEGATIVE E.U./dl (0.2-1.0)
[2016-03-14 19:04] LABS: URINE BLOOD 3+ (NEGATIVE); URINE PROTEIN 2+ (NEGATIVE)
[2016-03-14 19:09] LABS: URINE BACTERIA MANY /hpf (NONE SEEN); URINE RBC 229 /hpf (0-3); URINE WBC 15 /hpf (3-5)
[2016-03-14] MEDS ORDERED: PT OWN MED DRAWER 7, Y5N ONE (21:26)
[2016-03-14] MEDS: DIVALPROEX SODIUM 125 MG SPRINKLE CAPS (FP) PO SCH (22:57)
[2016-03-14] MEDS: DOCUSATE SODIUM 100 MG CAPSULE (FP) PO SCH (22:59)
[2016-03-14] MEDS: LATANOPROST 0.005% OPHTH SOLN 2.5ML BOTTLE OU SCH (23:21)
[2016-03-15] MEDS: SODIUM CHLORIDE 0.45% 1,000 ML IV SCH (01:35)
[2016-03-15] MEDS: amLODIPine BESYLATE 5 MG TABLET (FP) PO SCH ×3 (08:41→22:51)
[2016-03-15] MEDS: DIVALPROEX SODIUM 125 MG SPRINKLE CAPS (FP) PO SCH ×3 (08:41→22:51)
[2016-03-15] MEDS: LIDOCAINE 5% TOPICAL PATCH TP SCH ×2 (08:44→11:12)
[2016-03-15 08:55] LABS: BASOPHIL 0.4 % (0-2.0); EOSINOPHIL 0.8 % (0-4.5); MCH 31.2 pg (25.7-33.7); MCHC 32.8 g/dl (32.0-36.0); MEAN CELL VOLUME 95.3 fl (80-96); MEAN PLT VOLUME 8.9 fl (7.5-11.1); NEUTROPHILS 66.3 % (42.8-82.8); PLATELET COUNT 145 K/MM3 (134-434); RDW 15.8 % (11.6-15.6)
[2016-03-15 09:34] LABS: CALCIUM 7.3 mg/dL (8.5-10.1); CREATININE 2.1 mg/dL (0.55-1.02)
[2016-03-15 09:46] LABS: BILIRUBIN,TOTAL 0.8 mg/dL (0.2-1.0); TOT PROT 5.6 g/dl (6.4-8.2)
--- NOTE | 2016-03-15 10:13 | PN ---
Progress Note, Physician History of Present Illness: IN BED LETHARGIC--AROUSABLE - Current Medication List Current Medications: Active Medications Acetaminophen (Tylenol -) 650 mg PO Q6H PRN PRN Reason: FEVER OR PAIN Last Admin: 03/15/16 03:02 Dose: 650 mg Amlodipine Besylate (Norvasc -) 5 mg PO BID [facility] Last Admin: 03/15/16 08:41 Dose: 5 mg Divalproex Sodium (Depakote Sprinkle Caps -) 125 mg PO BID [facility] Last Admin: 03/15/16 08:41 Dose: 125 mg Docusate Sodium (Colace -) 300 mg PO HS [facility] Last Admin: 03/14/16 22:59 Dose: Not Given Haloperidol (Haldol Injection (Fast Acting) -) 2 mg IM Q4H PRN PRN Reason: AGITATION Latanoprost (Xalatan 0.005% Eye Drops -) 1 drop OU HS [facility] Last Admin: 03/14/16 23:21 Dose: Not Given Lidocaine (Lidoderm Patch -) 1 patch TP DAILY [facility] Last Admin: 03/15/16 08:44 Dose: 1 patch Senna (Senna -) 1 tab PO HS PRN PRN Reason: CONSTIPATION - Objective Vital Signs: Vital Signs Temperature 98.2 F 03/15/16 09:08 Pulse Rate 96 H 03/15/16 09:08 Respiratory Rate 20 03/15/16 09:08 Blood Pressure 122/85 03/15/16 09:08 O2 Sat by Pulse Oximetry (%) 94 L 03/14/16 21:00 Cardiovascular: Yes: Murmur, S1, S2 Respiratory: Yes: Regular, CTA Bilaterally Gastrointestinal: Yes: Normal Bowel Sounds, Soft Edema: No Labs: CBC, BMP 03/15/16 07:30 03/15/16 07:30 INR, PTT INR 1.19 (0.82-1.09) H 03/11/16 21:00 Problem List - Problems (1) Hypernatremia Assessment/Plan: HYPOTONIC SOLUTION--1/2 NS W KCL 125 MONITOR LABS Code(s): E87.0 - HYPEROSMOLALITY AND HYPERNATREMIA (2) MARLEN (acute kidney injury) Assessment/Plan: ASA ABOVE CR IMPROVING Code(s): N17.9 - ACUTE KIDNEY FAILURE, UNSPECIFIED (3) Leukocytosis Assessment/Plan: UA CXR Code(s): D72.829 - ELEVATED WHITE BLOOD CELL COUNT, UNSPECIFIED (4) Fibula fracture Code(s): S82.409A - UNSP FRACTURE OF SHAFT OF UNSP FIBULA, INIT FOR CLOS FX Qualifiers: Fibula location: distal physis (incl. Salter-Fish) Salter-Fish Fracture Type: unspecified configuration Fracture healing: with delayed healing (5) Agitation Assessment/Plan: PSYCH CONSULT NOTED--ON [place] Code(s): R45.1 - RESTLESSNESS AND AGITATION (6) Dementia Code(s): F03.90 - UNSPECIFIED DEMENTIA WITHOUT BEHAVIORAL DISTURBANCE Qualifiers: Dementia type: associated with other underlying disease (7) Hypokalemia Assessment/Plan: 3 RUNS OF KCL Code(s): E87.6 - HYPOKALEMIA
[2016-03-15] MEDS: KCL 10 MEQ IVPB 100 ML IVPB SCH ×3 (11:12→14:11)
[2016-03-15] MEDS: SODIUM CHLORIDE 0.45%/POT 1,000 ML IV SCH (11:13)
--- NOTE | 2016-03-15 12:31 | PN ---
Progress Note (short form) - Note Progress Note: RENAL Pt is arousable. Not eating she appears comfortable has some evidence of trauma on her legs Last Vital Signs Temp Pulse Resp BP Pulse Ox 98.2 F 96 H 20 122/85 94 L 03/15/16 09:08 03/15/16 09:08 03/15/16 09:08 03/15/16 09:08 03/15/16 09:00 arousable lungs clear cvs s1s2 rr abd soft ext -edema CBC, BMP 03/15/16 07:30 03/15/16 07:30 Current Medications Generic Name Dose Route Start Last Admin Trade Name Freq PRN Reason Stop Dose Admin Acetaminophen 650 mg 03/11/16 22:29 03/15/16 03:02 Tylenol - PO 650 mg Q6H PRN Administration FEVER OR PAIN Amlodipine Besylate 5 mg 03/12/16 10:00 03/15/16 11:13 Norvasc - PO Not Given BID SHIELA Divalproex Sodium 125 mg 03/14/16 22:00 03/15/16 11:12 Depakote Sprinkle Caps - PO Not Given BID SHIELA Docusate Sodium 300 mg 03/12/16 22:00 03/14/16 22:59 Colace - PO Not Given HS SHIELA Haloperidol 2 mg 03/12/16 10:05 Haldol Injection (Fast Acting) - IM Q4H PRN AGITATION Potassium Chloride 100 mls @ 100 mls/hr 03/15/16 10:45 03/15/16 12:30 Potassium Chloride 10 Meq Premix Ivpb - IVPB 03/15/16 13:44 100 mls/hr Q60M SHIELA Administration Potassium Chloride/Sodium Chloride 1,000 mls @ 125 mls/hr 03/15/16 10:15 11:13 1/2ns+20meq Kcl IV 125 mls/hr ASDIR SHIELA Administration Latanoprost 1 drop 03/12/16 22:00 03/14/16 23:21 Xalatan 0.005% Eye Drops - OU Not Given HS HSIELA Lidocaine 1 patch 03/12/16 10:00 03/15/16 11:12 Lidoderm Patch - TP Not Given DAILY SHIELA Senna 1 tab 03/11/16 22:29 Senna - PO HS PRN CONSTIPATION Impression 1. Hypernatremia/hypokalemia 2. MARLEN 3. dementia 4. HTN 5. dehydration 6. anemia Plan agree with adding potassium to fluids would discuss PEG with family hypokalemia from decreased intake. Previous magnesium was high MV
[2016-03-15 19:51] LABS: CALCIUM 7.2 mg/dL (8.5-10.1); CREATININE 1.8 mg/dL (0.55-1.02); MAGNESIUM 1.7 mg/dL (1.8-2.4)
[2016-03-15] MEDS ORDERED: PT OWN MED DRAWER 7, Y5N ONE (21:37)
[2016-03-15] MEDS: LATANOPROST 0.005% OPHTH SOLN 2.5ML BOTTLE OU SCH (22:51)
[2016-03-15] MEDS: DOCUSATE SODIUM 100 MG CAPSULE (FP) PO SCH (22:57)
[2016-03-16 07:17] LABS: BASOPHIL 0.2 % (0-2.0); EOSINOPHIL 0.7 % (0-4.5); MCH 31.9 pg (25.7-33.7); MCHC 33.6 g/dl (32.0-36.0); MEAN CELL VOLUME 94.9 fl (80-96); MEAN PLT VOLUME 8.9 fl (7.5-11.1); NEUTROPHILS 69.7 % (42.8-82.8); PLATELET COUNT 157 K/MM3 (134-434); RDW 15.4 % (11.6-15.6); WHITE BLOOD COUNT 10.4 K/mm3 (4.0-10.0)
[2016-03-16 07:48] LABS: ALBUMIN 2.1 g/dl (3.4-5.0); CALCIUM 7.2 mg/dL (8.5-10.1)
[2016-03-16 07:51] LABS: BILIRUBIN,TOTAL 0.8 mg/dL (0.2-1.0); CREATININE 1.7 mg/dL (0.55-1.02); TOT PROT 5.9 g/dl (6.4-8.2)
[2016-03-16] MEDS: SODIUM CHLORIDE 0.45%/POT 1,000 ML IV SCH ×4 (10:48→19:04)
[2016-03-16] MEDS: DIVALPROEX SODIUM 125 MG SPRINKLE CAPS (FP) PO SCH (10:53)
[2016-03-16] MEDS: amLODIPine BESYLATE 5 MG TABLET (FP) PO SCH (10:55)
[2016-03-16] MEDS: LIDOCAINE 5% TOPICAL PATCH TP SCH (10:55)
--- NOTE | 2016-03-16 11:43 | PN ---
Progress Note, Physician Chief Complaint: asleep, agitated awaiting family meeting to discuss palliative care options - Current Medication List Current Medications: Active Medications Acetaminophen (Tylenol -) 650 mg PO Q6H PRN PRN Reason: FEVER OR PAIN Last Admin: 03/15/16 03:02 Dose: 650 mg Amlodipine Besylate (Norvasc -) 5 mg PO BID [facility] Last Admin: 03/16/16 10:55 Dose: 5 mg Divalproex Sodium (Depakote Sprinkle Caps -) 125 mg PO BID [facility] Last Admin: 03/16/16 10:53 Dose: 125 mg Docusate Sodium (Colace -) 300 mg PO HS [facility] Last Admin: 03/15/16 22:57 Dose: Not Given Haloperidol (Haldol Injection (Fast Acting) -) 2 mg IM Q4H PRN PRN Reason: AGITATION Last Admin: 03/16/16 03:33 Dose: 2 mg Potassium Chloride/Sodium Chloride (1/2ns+20meq Kcl) 1,000 mls @ 125 mls/hr IV ASDIR [facility] Last Admin: 03/16/16 10:48 Dose: 125 mls/hr Latanoprost (Xalatan 0.005% Eye Drops -) 1 drop OU HS [facility] Last Admin: 03/15/16 22:51 Dose: 1 drop Lidocaine (Lidoderm Patch -) 1 patch TP DAILY [facility] Last Admin: 03/16/16 10:55 Dose: 1 patch Senna (Senna -) 1 tab PO HS PRN PRN Reason: CONSTIPATION - Objective Vital Signs: Vital Signs Temperature 98.5 F 03/15/16 21:00 Pulse Rate 102 H 03/15/16 21:00 Respiratory Rate 18 03/15/16 21:00 Blood Pressure 115/67 03/15/16 21:00 O2 Sat by Pulse Oximetry (%) 95 03/15/16 21:00 Constitutional: Yes: Mild Distress Eyes: Yes: WNL, Occular Prosthesis Neck: Yes: WNL Cardiovascular: Yes: WNL Respiratory: Yes: CTA Bilaterally Gastrointestinal: Yes: WNL Genitourinary: Yes: Incontinence Musculoskeletal: Yes: Muscle Weakness Extremities: Yes: Other Edema: No Peripheral Pulses WNL: Yes Integumentary: Yes: Rash, Venous Stasis Changes Wound/Incision: Yes: Dressing Dry and Intact Neurological: Yes: Confusion, Pre-Existing Deficit, Unsteady Gait, Weakness ...Motor Strength: LLE, RLE Psychiatric: Yes: Other Labs: CBC, BMP 03/16/16 05:40 03/16/16 05:40 INR, PTT INR 1.19 (0.82-1.09) H 03/11/16 21:00 Problem List - Problems (1) FTT (failure to thrive) in adult Code(s): R62.7 - ADULT FAILURE TO THRIVE (2) Hypernatremia Code(s): E87.0 - HYPEROSMOLALITY AND HYPERNATREMIA (3) Dementia Code(s): F03.90 - UNSPECIFIED DEMENTIA WITHOUT BEHAVIORAL DISTURBANCE Qualifiers: Dementia type: associated with other underlying disease (4) Fibula fracture Code(s): S82.409A - UNSP FRACTURE OF SHAFT OF UNSP FIBULA, INIT FOR CLOS FX Qualifiers: Fibula location: distal physis (incl. Salter-Fish) Salter-Fish Fracture Type: unspecified configuration Fracture healing: with delayed healing (5) Urinary tract infection Code(s): N39.0 - URINARY TRACT INFECTION, SITE NOT SPECIFIED Qualifiers: Urinary tract infection type: acute cystitis Hematuria presence: without hematuria Qualified Code(s): N30.00 - Acute cystitis without hematuria Assessment/Plan IVF PSYCH MEDICATIONS WITH RESTRAINTS FOR PATIENTS SAFETY FALL PRECAUTIONS [employer]VANCED DIRECTIVES PENDING PALLIATIVE CONSULT
--- NOTE | 2016-03-16 13:24 | PN ---
Progress Note, Physician History of Present Illness: Pt seen and examined at bedside. She is more awake however she is confused. - Current Medication List Current Medications: Active Medications Acetaminophen (Tylenol -) 650 mg PO Q6H PRN PRN Reason: FEVER OR PAIN Last Admin: 03/15/16 03:02 Dose: 650 mg Amlodipine Besylate (Norvasc -) 5 mg PO BID [facility] Last Admin: 03/16/16 10:55 Dose: 5 mg Divalproex Sodium (Depakote Sprinkle Caps -) 125 mg PO BID [facility] Last Admin: 03/16/16 10:53 Dose: 125 mg Docusate Sodium (Colace -) 300 mg PO HS [facility] Last Admin: 03/15/16 22:57 Dose: Not Given Haloperidol (Haldol Injection (Fast Acting) -) 2 mg IM Q4H PRN PRN Reason: AGITATION Last Admin: 03/16/16 03:33 Dose: 2 mg Potassium Chloride/Sodium Chloride (1/2ns+20meq Kcl) 1,000 mls @ 125 mls/hr IV ASDIR [facility] Last Admin: 03/16/16 10:48 Dose: 125 mls/hr Latanoprost (Xalatan 0.005% Eye Drops -) 1 drop OU HS [facility] Last Admin: 03/15/16 22:51 Dose: 1 drop Lidocaine (Lidoderm Patch -) 1 patch TP DAILY [facility] Last Admin: 03/16/16 10:55 Dose: 1 patch Senna (Senna -) 1 tab PO HS PRN PRN Reason: CONSTIPATION - Objective Vital Signs: Vital Signs Temperature 98.5 F 03/15/16 21:00 Pulse Rate 102 H 03/15/16 21:00 Respiratory Rate 18 03/15/16 21:00 Blood Pressure 115/67 03/15/16 21:00 O2 Sat by Pulse Oximetry (%) 95 03/15/16 21:00 Constitutional: Yes: Calm Eyes: Yes: Conjunctiva Clear HENT: Yes: Atraumatic Cardiovascular: Yes: S1, S2 Respiratory: Yes: CTA Bilaterally Gastrointestinal: Yes: Soft Genitourinary: Yes: Incontinence Musculoskeletal: Yes: Muscle Weakness Edema: No Neurological: Yes: Confusion Labs: CBC, BMP 03/16/16 05:40 03/16/16 05:40 INR, PTT INR 1.19 (0.82-1.09) H 03/11/16 21:00 Assessment/Plan Current Medications Generic Name Dose Route Start Last Admin Trade Name Freq PRN Reason Stop Dose Admin Acetaminophen 650 mg 03/11/16 22:29 03/15/16 03:02 Tylenol - PO 650 mg Q6H PRN Administration FEVER OR PAIN Amlodipine Besylate 5 mg 03/12/16 10:00 03/16/16 10:55 Norvasc - PO 5 mg BID SHIELA Administration Divalproex Sodium 125 mg 03/14/16 22:00 03/16/16 10:53 Depakote Sprinkle Caps - PO 125 mg BID SHIELA Administration Docusate Sodium 300 mg 03/12/16 22:00 03/15/16 22:57 Colace - PO Not Given HS SHIELA Haloperidol 2 mg 03/12/16 10:05 03/16/16 03:33 Haldol Injection (Fast Acting) - IM 2 mg Q4H PRN Administration AGITATION Potassium Chloride/Sodium Chloride 1,000 mls @ 125 mls/hr 03/15/16 10:15 10:48 1/2ns+20meq Kcl IV 125 mls/hr ASDIR SHIELA Administration Latanoprost 1 drop 03/12/16 22:00 03/15/16 22:51 Xalatan 0.005% Eye Drops - OU 1 drop HS SHIELA Administration Lidocaine 1 patch 03/12/16 10:00 03/16/16 10:55 Lidoderm Patch - TP 1 patch DAILY SHIELA Administration Senna 1 tab 03/11/16 22:29 Senna - PO HS PRN CONSTIPATION Impression 1. Hypernatremia 2. MARLEN 3. dementia 4. HTN 5. dehydration 6. anemia Plan - sodium is improved - cont with fluids, can start to decrease rate - encourage PO water intake and food intake, one to one feeds - repeat labs in am - will follow Dr Townsend
[2016-03-17] MEDS ORDERED: PT OWN MED DRAWER 7, Y5N ONE ×4 (00:17→22:25)
[2016-03-17] MEDS: LATANOPROST 0.005% OPHTH SOLN 2.5ML BOTTLE OU SCH ×2 (00:17→22:41)
[2016-03-17] MEDS: DIVALPROEX SODIUM 125 MG SPRINKLE CAPS (FP) PO SCH ×3 (00:18→22:41)
[2016-03-17] MEDS: amLODIPine BESYLATE 5 MG TABLET (FP) PO SCH ×3 (00:18→22:41)
[2016-03-17] MEDS: DOCUSATE SODIUM 100 MG CAPSULE (FP) PO SCH ×2 (00:26→22:41)
[2016-03-17] MEDS: SODIUM CHLORIDE 0.45%/POT 1,000 ML IV SCH (04:19)
[2016-03-17 06:29] LABS: MCH 30.6 pg (25.7-33.7); MCHC 32.2 g/dl (32.0-36.0); MEAN CELL VOLUME 94.9 fl (80-96); MEAN PLT VOLUME 9.1 fl (7.5-11.1); PLATELET COUNT 190 K/MM3 (134-434); RDW 15.5 % (11.6-15.6); WHITE BLOOD COUNT 9.2 K/mm3 (4.0-10.0)
[2016-03-17 07:06] LABS: CREATININE 1.5 mg/dL (0.55-1.02); MAGNESIUM 1.5 mg/dL (1.8-2.4)
[2016-03-17 07:14] LABS: CALCIUM 6.9 mg/dL (8.5-10.1)
[2016-03-17] MEDS: LIDOCAINE 5% TOPICAL PATCH TP SCH (09:01)
[2016-03-17] MEDS ORDERED: MAGNESIUM HYDROX 2400MG/30ML ORAL SUSPENSION 30 ML CUP PO PRN (09:19)
[2016-03-17] MEDS ORDERED: SODIUM CHLORIDE 0.45%/POT 1,000 ML IV SCH (12:15)
--- NOTE | 2016-03-17 12:15 | PN ---
Progress Note, Physician History of Present Illness: Pt seen and examined at bedside. She remains confused. She has poor PO intake. - Current Medication List Current Medications: Active Medications Acetaminophen (Tylenol -) 650 mg PO Q6H PRN PRN Reason: FEVER OR PAIN Last Admin: 03/15/16 03:02 Dose: 650 mg Amlodipine Besylate (Norvasc -) 5 mg PO BID [facility] Last Admin: 03/17/16 09:00 Dose: 5 mg Divalproex Sodium (Depakote Sprinkle Caps -) 125 mg PO BID [facility] Last Admin: 03/17/16 09:58 Dose: 125 mg Docusate Sodium (Colace -) 300 mg PO HS [facility] Last Admin: 03/17/16 00:26 Dose: Not Given Haloperidol (Haldol Injection (Fast Acting) -) 2 mg IM Q4H PRN PRN Reason: AGITATION Last Admin: 03/16/16 03:33 Dose: 2 mg Potassium Chloride/Sodium Chloride (1/2ns+20meq Kcl) 1,000 mls @ 115 mls/hr IV ASDIR [facility] Last Admin: 03/17/16 04:19 Dose: 115 mls/hr Latanoprost (Xalatan 0.005% Eye Drops -) 1 drop OU HS [facility] Last Admin: 03/17/16 00:17 Dose: 1 drop Lidocaine (Lidoderm Patch -) 1 patch TP DAILY [facility] Last Admin: 03/17/16 09:01 Dose: 1 patch Magnesium Hydroxide (Milk Of Magnesia -) 30 ml PO Q8H PRN PRN Reason: CONSTIPATION Senna (Senna -) 1 tab PO HS PRN PRN Reason: CONSTIPATION Last Admin: 03/17/16 01:17 Dose: 1 tab - Objective Vital Signs: Vital Signs Temperature 98.3 F 03/17/16 06:00 Pulse Rate 109 H 03/17/16 06:00 Respiratory Rate 20 03/17/16 06:00 Blood Pressure 123/72 03/17/16 06:00 O2 Sat by Pulse Oximetry (%) 95 03/16/16 21:00 Constitutional: Yes: Calm Eyes: Yes: Conjunctiva Clear HENT: Yes: Atraumatic Neck: Yes: Supple Cardiovascular: Yes: S1, S2 Respiratory: Yes: CTA Bilaterally Gastrointestinal: Yes: Soft Genitourinary: Yes: Incontinence Musculoskeletal: Yes: Muscle Weakness Edema: No Neurological: Yes: Confusion, Pre-Existing Deficit Labs: CBC, BMP 03/17/16 05:35 03/17/16 05:35 INR, PTT INR 1.19 (0.82-1.09) H 03/11/16 21:00 Assessment/Plan Current Medications Generic Name Dose Route Start Last Admin Trade Name Freq PRN Reason Stop Dose Admin Acetaminophen 650 mg 03/11/16 22:29 03/15/16 03:02 Tylenol - PO 650 mg Q6H PRN Administration FEVER OR PAIN Amlodipine Besylate 5 mg 03/12/16 10:00 03/17/16 09:00 Norvasc - PO 5 mg BID SHIELA Administration Divalproex Sodium 125 mg 03/14/16 22:00 03/17/16 09:58 Depakote Sprinkle Caps - PO 125 mg BID SHIELA Administration Docusate Sodium 300 mg 03/12/16 22:00 03/17/16 00:26 Colace - PO Not Given HS SHIELA Haloperidol 2 mg 03/12/16 10:05 03/16/16 03:33 Haldol Injection (Fast Acting) - IM 2 mg Q4H PRN Administration AGITATION Potassium Chloride/Sodium Chloride 1,000 mls @ 115 mls/hr 03/16/16 13:24 04:19 1/2ns+20meq Kcl IV 115 mls/hr ASDIR SHIELA Administration Latanoprost 1 drop 03/12/16 22:00 03/17/16 00:17 Xalatan 0.005% Eye Drops - OU 1 drop HS SHIELA Administration Lidocaine 1 patch 03/12/16 10:00 03/17/16 09:01 Lidoderm Patch - TP 1 patch DAILY SHIELA Administration Magnesium Hydroxide 30 ml 03/17/16 09:19 Milk Of Magnesia - PO Q8H PRN CONSTIPATION Senna 1 tab 03/11/16 22:29 03/17/16 01:17 Senna - PO 1 tab HS PRN Administration CONSTIPATION Impression 1. Hypernatremia 2. MARLEN 3. dementia 4. HTN 5. dehydration 6. anemia Plan - cont with fluids - repeat labs in am - will give calcium supplements - will need to discuss GOC - encourage PO water intake and food intake, one to one feeds - will follow Dr Townsend
--- NOTE | 2016-03-17 15:43 | PN ---
Progress Note, Physician Chief Complaint: AWAKE, IN BED WITH RESTRAINTS FOR SAFETY AWAITING FAMILY DECISIO ON PLACEMENT AND CALVARY ACCEPTANCE - Current Medication List Current Medications: Active Medications Acetaminophen (Tylenol -) 650 mg PO Q6H PRN PRN Reason: FEVER OR PAIN Last Admin: 03/15/16 03:02 Dose: 650 mg Amlodipine Besylate (Norvasc -) 5 mg PO BID [facility] Last Admin: 03/17/16 09:00 Dose: 5 mg Calcium Carbonate/Cholecalciferol (Os-Favio 500+D -) 2 tab PO DAILY [facility] Divalproex Sodium (Depakote Sprinkle Caps -) 125 mg PO BID [facility] Last Admin: 03/17/16 09:58 Dose: 125 mg Docusate Sodium (Colace -) 300 mg PO HS [facility] Last Admin: 03/17/16 00:26 Dose: Not Given Potassium Chloride 10 meq/ (Dextrose) 1,005 mls @ 75 mls/hr IVPB Q13H [facility] Latanoprost (Xalatan 0.005% Eye Drops -) 1 drop OU HS [facility] Last Admin: 03/17/16 00:17 Dose: 1 drop Lidocaine (Lidoderm Patch -) 1 patch TP DAILY [facility] Last Admin: 03/17/16 09:01 Dose: 1 patch Magnesium Hydroxide (Milk Of Magnesia -) 30 ml PO Q8H PRN PRN Reason: CONSTIPATION Mirtazapine (Remeron -) 15 mg PO HS [facility] Olanzapine (Zyprexa -) 2.5 mg PO HS [facility] Senna (Senna -) 1 tab PO HS PRN PRN Reason: CONSTIPATION Last Admin: 03/17/16 01:17 Dose: 1 tab - Objective Vital Signs: Vital Signs Temperature 98.5 F 03/17/16 13:26 Pulse Rate 103 H 03/17/16 13:26 Respiratory Rate 19 03/17/16 13:26 Blood Pressure 127/65 03/17/16 13:26 O2 Sat by Pulse Oximetry (%) 95 03/16/16 21:00 Constitutional: Yes: Mild Distress, Other Eyes: Yes: WNL HENT: Yes: WNL Neck: Yes: WNL Cardiovascular: Yes: WNL Respiratory: Yes: WNL Gastrointestinal: Yes: WNL Genitourinary: Yes: Incontinence, Other Musculoskeletal: Yes: Muscle Weakness Extremities: Yes: Other Edema: No Peripheral Pulses WNL: Yes Integumentary: Yes: Rash Wound/Incision: Yes: Open to air Neurological: Yes: Pre-Existing Deficit, Unsteady Gait, Weakness ...Motor Strength: LLE, RLE Psychiatric: Yes: Agitated Labs: CBC, BMP 03/17/16 05:35 03/17/16 05:35 INR, PTT INR 1.19 (0.82-1.09) H 03/11/16 21:00 Problem List - Problems (1) FTT (failure to thrive) in adult Code(s): R62.7 - ADULT FAILURE TO THRIVE (2) Hypernatremia Code(s): E87.0 - HYPEROSMOLALITY AND HYPERNATREMIA (3) Dementia Code(s): F03.90 - UNSPECIFIED DEMENTIA WITHOUT BEHAVIORAL DISTURBANCE Qualifiers: Dementia type: associated with other underlying disease (4) Fibula fracture Code(s): S82.409A - UNSP FRACTURE OF SHAFT OF UNSP FIBULA, INIT FOR CLOS FX Qualifiers: Fibula location: distal physis (incl. Salter-Fish) Salter-Fish Fracture Type: unspecified configuration Fracture healing: with delayed healing (5) Urinary tract infection Code(s): N39.0 - URINARY TRACT INFECTION, SITE NOT SPECIFIED Qualifiers: Urinary tract infection type: acute cystitis Hematuria presence: without hematuria Qualified Code(s): N30.00 - Acute cystitis without hematuria Assessment/Plan IVF PSYCH MEDICATIONS WITH RESTRAINTS, ZYPREXA ADDED STOP HALDOL IM FOR PATIENTS SAFETY FALL PRECAUTIONS [employer]VANCED DIRECTIVES PENDING PALLIATIVE CONSULT
[2016-03-17] MEDS: POTASSIUM CHLORIDE 10 MEQ in DEXTROSE 5%-WATER - 1,000 ML IVPB SCH (16:17)
[2016-03-17] MEDS: CALCIUM 500MG/VIT-D 200 UNITS COMBO TABLET (FP) PO SCH (16:22)
[2016-03-17] MEDS ORDERED: OLANZapine 2.5 MG TABLET PO SCH (22:00)
[2016-03-17] MEDS ORDERED: MIRTAZAPINE 15 MG TABLET (FP) PO SCH (22:00)
[2016-03-17] MEDS: MAGNESIUM OXIDE 400 MG TABLET (FP) PO SCH (22:41)
[2016-03-18] MEDS: POTASSIUM CHLORIDE 10 MEQ in DEXTROSE 5%-WATER - 1,000 ML IVPB SCH ×2 (04:36→04:59)
[2016-03-18 08:01] VITALS: TEMP 97.1
[2016-03-18 08:06] LABS: CALCIUM 7.2 mg/dL (8.5-10.1)
[2016-03-18 08:10] LABS: BILIRUBIN,TOTAL 0.8 mg/dL (0.2-1.0); CREATININE 1.4 mg/dL (0.55-1.02); TOT PROT 5.8 g/dl (6.4-8.2)
--- NOTE | 2016-03-18 09:41 | DS ---
Physical Examination Vital Signs: Vital Signs Temperature 97.1 F L 03/18/16 06:00 Pulse Rate 106 H 03/18/16 06:00 Respiratory Rate 20 03/18/16 06:00 Blood Pressure 127/87 03/18/16 06:00 O2 Sat by Pulse Oximetry (%) 95 03/17/16 22:00 Constitutional: Yes: Mild Distress Eyes: Yes: WNL HENT: Yes: WNL Neck: Yes: WNL Cardiovascular: Yes: WNL Respiratory: Yes: WNL Gastrointestinal: Yes: WNL Musculoskeletal: Yes: Muscle Weakness Extremities: Yes: Deformity, Internal Rotation Edema: No Peripheral Pulses WNL: Yes Integumentary: Yes: Rash Wound/Incision: Yes: Clean/Dry, Open to air Neurological: Yes: Pre-Existing Deficit, Unsteady Gait, Weakness ...Motor Strength: LLE, RLE Psychiatric: Yes: Other Labs: CBC, BMP 03/17/16 05:35 03/18/16 06:30 Discharge Summary Reason For Visit: HYPERNATREMIA Current Active Problems MARLEN (acute kidney injury) (Acute) Agitation (Acute) Elevated CK (Acute) FTT (failure to thrive) in adult (Acute) Hypernatremia (Acute) Hypokalemia (Acute) Leukocytosis (Acute) Traumatic rhabdomyolysis (Acute) Procedures: Principal: LABS/XRAYS Hospital Course: ADMITTED FOR ACUTE RENAL FAILURE HYPERNATREMIA, IVF, WORSENING DEMENTIA, WITH TIB/FIB FRACTURE, FAMILY WANTING HOSPICE CARE AT [facility] Condition: Poor - Instructions Diet, Activity, Other Instructions: TOLERATED SOFT/THICKENED LIQUIDS Referrals: Karthik Diaz MD [Primary Care Provider] - Disposition: LONG-TERM FACILITY - Home Medications Comprehensive Discharge Medication List: Ambulatory Orders Latanoprost 0.005% Eye Drops [Xalatan 0.005% Eye Drops -] 1 drop OU HS 11/30/12 Sennosides [Senna -] 1 tab PO HS PRN #30 tablet 08/14/15 Lidocaine 5% Patch [Lidoderm -] 1 patch TP DAILY patch 09/26/15 Acetaminophen [Tylenol .Regular Strength -] 650 mg PO Q6H PRN #0 tablet Amlodipine Besylate [Norvasc -] 5 mg PO BID tablet 02/10/16 Docusate Sodium [Colace -] 300 mg PO HS capsule 02/10/16 Enoxaparin [Lovenox -] 30 mg SQ DAILY disp.syrin 02/10/16
[2016-03-18] MEDS: CALCIUM 500MG/VIT-D 200 UNITS COMBO TABLET (FP) PO SCH (10:59)
[2016-03-18] MEDS: MAGNESIUM OXIDE 400 MG TABLET (FP) PO SCH (10:59)
[2016-03-18] MEDS: amLODIPine BESYLATE 5 MG TABLET (FP) PO SCH (10:59)
[2016-03-18] MEDS ORDERED: PT OWN MED DRAWER 7, Y5N ONE (11:01)
[2016-03-18] MEDS: DIVALPROEX SODIUM 125 MG SPRINKLE CAPS (FP) PO SCH (11:01)
[2016-03-18] MEDS: LIDOCAINE 5% TOPICAL PATCH TP SCH (11:01)
--- NOTE | 2016-03-18 13:47 | PN ---
Progress Note, Physician History of Present Illness: Pt seen and examined at bedside. She appears comfortable. She is going to be transferred to [place] today. - Current Medication List Current Medications: Active Medications Acetaminophen (Tylenol -) 650 mg PO Q6H PRN PRN Reason: FEVER OR PAIN Last Admin: 03/15/16 03:02 Dose: 650 mg Amlodipine Besylate (Norvasc -) 5 mg PO BID [facility] Last Admin: 03/18/16 10:59 Dose: 5 mg Calcium Carbonate/Cholecalciferol (Os-Favio 500+D -) 2 tab PO DAILY [facility] Last Admin: 03/18/16 10:59 Dose: 2 tab Divalproex Sodium (Depakote Sprinkle Caps -) 125 mg PO BID [facility] Last Admin: 03/18/16 11:01 Dose: 125 mg Docusate Sodium (Colace -) 300 mg PO HS [facility] Last Admin: 03/17/16 22:41 Dose: 300 mg Latanoprost (Xalatan 0.005% Eye Drops -) 1 drop OU [facility] Last Admin: 03/17/16 22:41 Dose: 1 drop Lidocaine (Lidoderm Patch -) 1 patch TP DAILY [facility] Last Admin: 03/18/16 11:01 Dose: 1 patch Magnesium Hydroxide (Milk Of Magnesia -) 30 ml PO Q8H PRN PRN Reason: CONSTIPATION Last Admin: 03/17/16 16:25 Dose: 30 ml Magnesium Oxide (Mag-Ox -) 400 mg PO BID [facility] Last Admin: 03/18/16 10:59 Dose: 400 mg Mirtazapine (Remeron -) 15 mg PO HS [facility] Last Admin: 03/17/16 22:41 Dose: 15 mg Olanzapine (Zyprexa -) 2.5 mg PO HS [facility] Last Admin: 03/17/16 22:41 Dose: 2.5 mg Senna (Senna -) 1 tab PO HS PRN PRN Reason: CONSTIPATION Last Admin: 03/17/16 01:17 Dose: 1 tab - Objective Vital Signs: Vital Signs Temperature 97.1 F L 03/18/16 06:00 Pulse Rate 106 H 03/18/16 06:00 Respiratory Rate 20 03/18/16 06:00 Blood Pressure 127/87 03/18/16 06:00 O2 Sat by Pulse Oximetry (%) 95 03/17/16 22:00 Constitutional: Yes: Calm Eyes: Yes: Conjunctiva Clear HENT: Yes: Atraumatic Cardiovascular: Yes: S1, S2 Respiratory: Yes: CTA Bilaterally Gastrointestinal: Yes: Soft Genitourinary: Yes: Incontinence Musculoskeletal: Yes: Muscle Weakness Edema: No Neurological: Yes: Confusion Labs: CBC, BMP 03/17/16 05:35 03/18/16 06:30 INR, PTT INR 1.19 (0.82-1.09) H 03/11/16 21:00 Assessment/Plan Current Medications Generic Name Dose Route Start Last Admin Trade Name Freq PRN Reason Stop Dose Admin Acetaminophen 650 mg 03/11/16 22:29 03/15/16 03:02 Tylenol - PO 650 mg Q6H PRN Administration FEVER OR PAIN Amlodipine Besylate 5 mg 03/12/16 10:00 03/18/16 10:59 Norvasc - PO 5 mg BID [facility] Administration Calcium Carbonate/Cholecalciferol 2 tab 03/17/16 12:15 03/18/16 10:59 Os-Favio 500+D - PO 2 tab DAILY [facility] Administration Divalproex Sodium 125 mg 03/14/16 22:00 03/18/16 11:01 Depakote Sprinkle Caps - PO 125 mg BID [facility] Administration Docusate Sodium 300 mg 03/12/16 22:00 03/17/16 22:41 Colace - PO 300 mg HS [facility] Administration Latanoprost 1 drop 03/12/16 22:00 03/17/16 22:41 Xalatan 0.005% Eye Drops - OU 1 drop HS [facility] Administration Lidocaine 1 patch 03/12/16 10:00 03/18/16 11:01 Lidoderm Patch - TP 1 patch DAILY [facility] Administration Magnesium Hydroxide 30 ml 03/17/16 09:19 03/17/16 16:25 Milk Of Magnesia - PO 30 ml Q8H PRN Administration CONSTIPATION Magnesium Oxide 400 mg 03/17/16 22:00 03/18/16 10:59 Mag-Ox - PO 400 mg BID [facility] Administration Mirtazapine 15 mg 03/17/16 22:00 03/17/16 22:41 Remeron - PO 15 mg HS [facility] Administration Olanzapine 2.5 mg 03/17/16 22:00 03/17/16 22:41 Zyprexa - PO 2.5 mg HS [facility] Administration Senna 1 tab 03/11/16 22:29 03/17/16 01:17 Senna - PO 1 tab HS PRN Administration CONSTIPATION Impression 1. Hypernatremia 2. MARLEN 3. dementia 4. HTN 5. dehydration 6. anemia Plan - can stop fluids - sodium is improved - pt for transfer to [place] - spoke to nurse about plan - cont current care - encourage PO intake as tolerated - renal function is also improving - hypernatremia and MARLEN will re-occur if pt does not eat and hydrate herself - will follow Dr Townsend
[2016-03-18 15:54] VITALS: BP 130/70; PULSE 100
== END 2016-03-18 14:13 | disposition hospice, inpatient (51) | DRG 683 ==
LOC: SUPCPDRO 19:23 → JER 19:23 → JERBED 22:26 → UNDOADMIN 22:40 → JERBED 22:40 → J5S 03-12 01:28
PROVIDERS: ADMIT Family Medicine; ATTEND Family Medicine
DX: N17.9 Acute kidney failure, unspecified (principal); E87.0 Hyperosmolality and hypernatremia; F03.90 Unspecified dementia, unspecified severity, without behavioral disturbance, psychotic disturbance, mood disturbance, and anxiety; Z66 Do not resuscitate; R62.7 Adult failure to thrive; Z87.891 Personal history of nicotine dependence; E86.0 Dehydration; D64.9 Anemia, unspecified; E87.6 Hypokalemia
CPT/HCPCS: 36415; 70450-TC; 71010-TC; 80048; 80053; 81003; 81015; 82550; 82570; 82728; 83540; 83550; 83605; 83690; 83735; 83880; 84100; 84484; 85025; 85027; 85610; 87086; 93005; 93010; 93306-TC; 97001-GP; 99283-25; J3480